=== PATIENT | female | born 1970 | race Caucasian/White ===

== ENCOUNTER 2018-03-16 21:25 | Emergency (ER) | payer MEDICAID ==
[~2018-03-16] VITALS: Ht 160 cm; Wt 72.8 kg
--- NOTE | 2018-03-16 21:45 | NUR ---
PT PRESENTED WITH C/O MIGRAINE TONIGHT WITH HISTORY OF MIGRAINES. PT REPORTS NAUSEA AND DENIES VOMITING. MONITORS APPLIED, SIDERAILS UP 2, CALL LIGHT WITHIN REACH
[2018-03-16] MEDS ORDERED: DEXAMETHASONE 4 MG TABLET ONE (21:59)
[2018-03-16] MEDS ORDERED: ACETAMINOPHEN 325 MG TABLET ONE (21:59)
[2018-03-16] MEDS ORDERED: DIPHENHYDRAMINE 50 MG CAPSULE PO ONE (22:00)
[2018-03-16] MEDS ORDERED: ONDANSETRON ODT 4 MG PO ONE (22:00)
[2018-03-16] MEDS ORDERED: KETOROLAC 30 MG/1 ML IM ONE (22:00)
[2018-03-16] MEDS ORDERED: PROCHLORPERAZINE 10MG TABLET ONE (22:00)
[2018-03-16] MEDS ORDERED: ACETAMINOPHEN 325 MG TABLET PO ONE (22:00)
[2018-03-16] MEDS ORDERED: ONDANSETRON ODT 4 MG ONE ×2 (22:00→22:58)
[2018-03-16] MEDS ORDERED: DEXAMETHASONE 4 MG TABLET PO ONE (22:00)
[2018-03-16] MEDS ORDERED: KETOROLAC 30 MG/1 ML ONE ×2 (22:00→22:57)
[2018-03-16] MEDS ORDERED: DIPHENHYDRAMINE 50 MG CAPSULE ONE (22:00)
[2018-03-16] MEDS: PROCHLORPERAZINE 10MG TABLET PO ONE ×2 (22:02→22:19)
[2018-03-16] MEDS ORDERED: PROMETHAZINE 25 MG/ML, 1ML ONE (22:17)
--- NOTE | 2018-03-16 22:22 | NUR ---
PT MEDICATED PER MAR.
[2018-03-16] MEDS ORDERED: PROMETHAZINE 25 MG/ML, 1ML IM ONE (22:30)
[2018-03-16] MEDS ORDERED: ATEN50TA41 PO (22:32)
[2018-03-16] MEDS ORDERED: SUMA25TA3 PO (22:32)
[2018-03-16] MEDS ORDERED: ONDANSETRON ODT 8 MG PO ONE (23:00)
[2018-03-16] MEDS ORDERED: ZIPRASIDONE 20 MG INJ IM ONE ×2 (23:14→23:30)
--- NOTE | 2018-03-16 23:20 | NUR ---
PT RESTING ON [facility], MONITORS IN PLACE, MEDICATED PER MAR, CALL LIGHT WITHIN REACH, SIDERAILS UP X2.
--- NOTE | 2018-03-16 23:39 | NUR ---
PT RESTING ON GURNEY WITH EYES CLOSED, PT STATED PAIN IS " A LITTLE BETTER", 8/10 ON PAIN SCALE, DENIES NAUSEA. MONITORS IN PLACE, DENIES NEEDS AT THIS TIME, CALL LIGHT WITHIN REACH.
--- NOTE | 2018-03-17 00:20 | NUR ---
BREAK RN: THIS RN AT BEDSIDE TO D/C. VS TAKEN. PT AMBULATORY, DRESSED SELF. D/C INSTRUCTIONS GIVEN, PT EDUCATED ON F/U, VERBALIZED UNDERSTANDING. [place], CALLING HERSELF A CAB FROM [employer] TO GET BACK TO [facility]. PT HAS PURSE/CELL PHONE WITH HER. PT LEFT IN STABLE CONDITION WITH ALL BELONGINGS.
[2018-03-17 00:22] VITALS: BP 154/95
== END 2018-03-17 00:24 | disposition home or self-care (01) ==
LOC: ED 21:57
DX: G43.909 Migraine, unspecified, not intractable, without status migrainosus (principal)
CPT/HCPCS: 96372; 99284; J1885; J2550; J3486; Q0162; Q0164